=== PATIENT | male | born 1985 ===

== ENCOUNTER 2018-12-01 17:07 | Emergency (ER) | payer SELFPAY ==
--- NOTE | 2018-12-01 17:33 | C.PDOC ---
History Of Present Illness 33 y/o male comes in complaining of exacerbated chronic lower back pain for the past 3 days, worsens with movement. Patient reports onset after heavy lifting at work. He states he takes vicodin daily, but no improvement with current dosing. Patient uses back brace. Patient has a pain management doctor at [facility]. Denies any other associated symptoms. EXAC CHRONIC LBP X 3 DAYS. ONSET AFTER HEAVY LIFTING @ WORK. TAKES VICODIN DAILY, NO IMPROVE W CURRENT DOSING. USES BACK BRACE. PS HAS PAIN MGMT DOCTOR @ [facility]. LOWER BACK LOCALIZED WORSE W MOVEMENT. DENIES OTHER ASSOC SX EXAM MILD DIST BACK +BACK BRACE. LIMITED FULL ROM DUE TO PAIN NEURO INTACT Time Seen by Provider: 12/01/18 17:26 Chief Complaint (Nursing): Back Pain History Per: Patient History/Exam Limitations: no limitations Onset/Duration Of Symptoms: Days Current Symptoms Are (Timing): Still Present Past Medical History Reviewed: Historical Data, Nursing Documentation, Vital Signs Vital Signs: Last Vital Signs Temp 98.6 F 12/01/18 17:21 Pulse 95 H 12/01/18 17:21 Resp 18 12/01/18 17:21 BP 131/77 12/01/18 17:21 Pulse Ox 95 12/01/18 17:21 - Medical History PMH: Arthritis, Back Problems Family History: States: No Known Family Hx - Social History Hx Tobacco Use: Yes Hx Alcohol Use: No Hx Substance Use: No - Immunization History Hx Tetanus Toxoid Vaccination: No Hx Influenza Vaccination: No Hx Pneumococcal Vaccination: No Review Of Systems Except As Marked, All Systems Reviewed And Found Negative. Musculoskeletal: Positive for: Back Pain (Lower back pain) Physical Exam - Physical Exam Appears: Non-toxic, In Acute Distress (mild) Skin: Warm, Dry Head: Atraumatic, Normacephalic Eye(s): bilateral: Normal Inspection Oral Mucosa: Moist Neck: Supple Cardiovascular: Rhythm Regular, No Murmur Respiratory: Normal Breath Sounds, No Rales, No Rhonchi, No Wheezing Back: Other (+back brace; limited full ROM due to pain) Extremity: No Pedal Edema Extremity: Bilateral: Atraumatic, Normal Color And Temperature Neurological/Psych: Oriented x3, Normal Speech, Normal Motor, Normal Sensation Gait: Steady ED Course And Treatment O2 Sat by Pulse Oximetry: 95 (RA) Pulse Ox Interpretation: Normal Medical Decision Making Medical Decision Making: Plan: --Dilaudid 4 mg PO Disposition Counseled Patient/Family Regarding: Diagnosis, Need For Followup - Disposition Referrals: YOUR,PAIN MANAGEMENT DOCTOR [Other] Disposition: HOME/ ROUTINE Disposition Time: 17:32 Condition: IMPROVED Instructions: Chronic Pain (DC), Low Back Pain (DC) Forms: [employer] (Azeri), Work Excuse - Clinical Impression Clinical Impression: Acute exacerbation of chronic low back pain - Scribe Statement The provider has reviewed the documentation as recorded by the Monica Cuevas Provider Attestation: All medical record entries made by the Monica were at my direction and personally dictated by me. I have reviewed the chart and agree that the record accurately reflects my personal performance of the history, physical exam, medical decision making, and the department course for this patient. I have also personally directed, reviewed, and agree with the discharge instructions and disposition.
[2018-12-01 17:40] VITALS: BP 131/77; PULSE 95; RESP 18; TEMP 98.6; O2SAT 95
== END 2018-12-01 17:43 | disposition home or self-care (01) ==
LOC: C.ER 17:07
DX: G89.29 Other chronic pain (principal); M54.5 Low back pain